=== PATIENT | female | born 1990 | race Caucasian/White ===

== ENCOUNTER 2018-09-19 13:40 | Emergency (ER) | payer BC ==
[~2018-09-19] VITALS: Ht 167.6 cm; Wt 48.1 kg
--- NOTE | 2018-09-19 13:50 | NUR ---
PT A/OX4, PRESENTS TO THE ER C/O PERSISTENT ABD PAIN W/ VAGINAL BLEEDING. PT REPORTS SHE IS S/P 08/31/18. PT STATES VAGINAL BLEEDING IS "HEAVY" AND SHE'S CURRENTLY CHANGING HER TAMPON Q2H. ABD PAIN IS NON-PROVOKED, CRAMPING IN QUALITY, RADIATES DOWN INTO THE LOWER ABD, 7/10, CONSTANT. VS WNL. PT REPORTS HIGH HCG LEVEL - APPROXIMATELY 6000 POST PROCEDURE ON 09/13/18. PT DENIES C/P, SOB, N/V/D, DIZZINESS, HEADACHE.
--- NOTE | 2018-09-19 13:55 | NUR ---
AMINA RUTLEDGE AT BEDSIDE FOR MSE.
[2018-09-19] MEDS ORDERED: FLUO20CA36 PO (14:01)
[2018-09-19] MEDS ORDERED: CLON1TAB12 PO (14:01)
[2018-09-19] MEDS ORDERED: MELA3TAB PO (14:01)
[2018-09-19 14:25] LABS: BASOPHILS # (AUTO) 0.1 K/uL (0.0-8.0); BASOPHILS % (AUTO) 0.7 % (0.0-2.0); EOSINOPHILS # (AUTO) 0.1 K/uL (0.0-0.7); EOSINOPHILS % (AUTO) 1.3 % (0.0-7.0); HEMATOCRIT 33.9 % (31.2-41.9); HEMOGLOBIN 11.4 g/dL (10.9-14.3); LYMPHOCYTES # (AUTO) 1.8 K/uL (20.0-40.0); LYMPHOCYTES % (AUTO) 23.2 % (20.5-51.5); MEAN CORPUSCULAR HGB CONC 34 g/dL (32.3-35.6); MEAN CORPUSCULAR VOLUME 95.1 fL (75.5-95.3); MONOCYTES # (AUTO) 0.4 K/uL (2.0-10.0); MONOCYTES % (AUTO) 4.7 % (0.0-11.0); NEUTROPHILS # (AUTO) 5.5 K/uL (1.8-8.9); NEUTROPHILS % (AUTO) 70.1 % (38.5-71.5); PLATELET COUNT (AUTO) 229 K/uL (179-408); RED BLOOD CELL COUNT(AUTO) 3.56 MIL/uL (3.63-4.92); WHITE BLOOD COUNT (AUTO) 7.9 K/uL (3.8-11.8)
[2018-09-19 14:27] LABS: *BILIRUBIN,URIN NEGATIVE (NEGATIVE); *BLOOD, URINE 2+ (NEGATIVE); *CLARITY,URINE CLEAR (CLEAR); *COLOR,URINE YELLOW (YELLOW); *KETONES,URINE NEGATIVE (NEGATIVE); *UROBILINOGEN,URINE 0.2 E.U./dl (NORMAL); LEUKOCYTE ESTERASE ,URINE NEGATIVE (NEGATIVE); NITRITE, URINE NEGATIVE (NEGATIVE); PH,URINE 6.5 (5.0-8.0); UGLUCOSE NEGATIVE (NEGATIVE)
[2018-09-19 14:34] LABS: CREATININE 0.8 mg/dL (0.6-1.3); POTASSIUM 3.9 mmol/L (3.5-5.1)
[2018-09-19 14:39] LABS: BACTERIA,URINE FEW /HPF (NONE SEEN); SQUAMOUS EPITHELIAL CELL,UR FEW /HPF (NONE SEEN); WBC,URINE 0-3 /HPF (0-3)
[2018-09-19 14:46] LABS: BILIRUBIN,DIRECT 0.3 mg/dL (0.0-0.2); BILIRUBIN,TOTAL 1.6 mg/dL (0.2-1.0); TOTAL PROTEIN, SERUM 6.5 g/dL (6.4-8.2)
--- NOTE | 2018-09-19 15:56 | NUR ---
AMINA RUTLEDGE AT BEDSIDE FOR PT UPDATE.
--- NOTE | 2018-09-19 16:08 | NUR ---
AMINA RUTLEDGE SPEAKING W/ DR. 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
--- NOTE | 2018-09-19 16:37 | NUR ---
Patient discharged to home in stable conditon. Written and verbal after care instructions given. Patient verbalizes understanding of instructions. ALL BELONGINGS W/ PT. PT SELF-AMBULATED W/O DIFFICULTY.
[2018-09-19 16:38] VITALS: BP 116/72
== END 2018-09-19 16:38 | disposition home or self-care (01) ==
LOC: ER 13:40
DX: O03.4 Incomplete spontaneous abortion without complication (principal); Z79.899 Other long term (current) drug therapy
CPT/HCPCS: 36415; 76856; 85025; 86850; 86900; 86901; A4663

== ENCOUNTER 2018-09-29 16:07 | Emergency (ER) | payer BC ==
[~2018-09-29] VITALS: Ht 167.6 cm; Wt 49.9 kg
[~2018-09-29 16:07] MED LIST: CLON1TAB12 PO; FLUO20CA36 PO; MELA3TAB PO
--- NOTE | 2018-09-29 16:10 | NUR ---
PT A/OX4, PRESENTS TO THE ER C/O VAGINAL BLEEDING. PT WAS SEEN IN THIS ER RECENTLY AND DX W/ INCOMPLETE AND INSTRUCTED TO FOLLOWUP W/ AN OBGYN. PT REPORTS SHE DID NOT MAKE AN APPT W/ AN OBGYN AND "RECENTLY STARTED BLEEDING AGAIN". VSS. PT DENIES PAIN, C/P, SOB, N/V/D, DIZZINESS, HEADACHE.
--- NOTE | 2018-09-29 16:18 | NUR ---
AMINA RUTLEDGE AT BEDSIDE FOR MSE.
--- NOTE | 2018-09-29 16:22 | NUR ---
US TECH AT BEDSIDE.
[2018-09-29] MEDS ORDERED: KETOROLAC TROMETHAMINE 15 MG INJ ONE (16:27)
[2018-09-29] MEDS ORDERED: IV NORMAL SALINE 1000 ML BAG IV ONE ×2 (16:30→20:30)
[2018-09-29] MEDS ORDERED: KETOROLAC TROMETHAMINE 15 MG INJ IV ONE (16:30)
[2018-09-29 16:54] LABS: BASOPHILS % (AUTO) 0.6 % (0.0-2.0); EOSINOPHILS % (AUTO) 0.4 % (0.0-7.0); HEMATOCRIT 39.4 % (31.2-41.9); HEMOGLOBIN 13.2 g/dL (10.9-14.3); LYMPHOCYTES # (AUTO) 1.7 K/uL (20.0-40.0); LYMPHOCYTES % (AUTO) 21.6 % (20.5-51.5); MEAN CORPUSCULAR HEMOGLOBIN 31.6 uug (24.7-32.8); MEAN CORPUSCULAR HGB CONC 33 g/dL (32.3-35.6); MEAN CORPUSCULAR VOLUME 94.7 fL (75.5-95.3); MONOCYTES # (AUTO) 0.3 K/uL (2.0-10.0); MONOCYTES % (AUTO) 4.1 % (0.0-11.0); NEUTROPHILS # (AUTO) 5.8 K/uL (1.8-8.9); NEUTROPHILS % (AUTO) 73.3 % (38.5-71.5); PLATELET COUNT (AUTO) 252 K/uL (179-408); RED BLOOD CELL COUNT(AUTO) 4.16 MIL/uL (3.63-4.92); WHITE BLOOD COUNT (AUTO) 7.9 K/uL (3.8-11.8)
[2018-09-29 17:02] LABS: CREATININE 0.6 mg/dL (0.6-1.3); POTASSIUM 3.1 mmol/L (3.5-5.1)
[2018-09-29 17:08] LABS: BILIRUBIN,DIRECT 0.4 mg/dL (0.0-0.2); BILIRUBIN,TOTAL 1.9 mg/dL (0.2-1.0); TOTAL PROTEIN, SERUM 7.9 g/dL (6.4-8.2)
[2018-09-29 17:08] LABS: *BILIRUBIN,URIN NEGATIVE (NEGATIVE); *BLOOD, URINE 3+ (NEGATIVE); *CLARITY,URINE CLOUDY (CLEAR); *KETONES,URINE 1+ (NEGATIVE); *UROBILINOGEN,URINE 0.2 E.U./dl (NORMAL); LEUKOCYTE ESTERASE ,URINE NEGATIVE (NEGATIVE); NITRITE, URINE NEGATIVE (NEGATIVE); PH,URINE 8.5 (5.0-8.0); UGLUCOSE NEGATIVE (NEGATIVE)
[2018-09-29 17:17] LABS: *COLOR,URINE Brown (YELLOW)
[2018-09-29 17:29] LABS: BACTERIA,URINE FEW /HPF (NONE SEEN); RBC,URINE TNTC /HPF (0-3); SQUAMOUS EPITHELIAL CELL,UR MANY /HPF (NONE SEEN)
[2018-09-29 17:30] LABS: MUCUS,URINE MODERATE /LPF (0-FEW)
--- NOTE | 2018-09-29 18:00 | NUR ---
LEFT A MESSAGE FOR [facility].
--- NOTE | 2018-09-29 18:05 | NUR ---
AMINA RUTLEDGE SPEAKING W/ [facility].
--- NOTE | 2018-09-29 18:08 | NUR ---
AMINA RUTLEDGE AT BEDSIDE FOR PT UPDATE.
--- NOTE | 2018-09-29 18:11 | NUR ---
AMINA RUTLEDGE SPEAKING W/ DR. KHAN ON THE PHONE.
[2018-09-29] MEDS ORDERED: METHYLERGONOVINE MALEATE 0.2 MG/ML AMP IM ONE (18:15)
[2018-09-29] MEDS ORDERED: OXYTOCIN 10 UNIT/ML VIAL IV ONE (18:15)
[2018-09-29] MEDS ORDERED: OXYTOCIN 10 UNIT/ML VIAL ONE (18:17)
[2018-09-29] MEDS ORDERED: METHYLERGONOVINE MALEATE 0.2 MG/ML AMP ONE (18:17)
--- NOTE | 2018-09-29 19:00 | NUR ---
SHIFT REPORT GIVEN TO JASMIN Ontiveros RN.
--- NOTE | 2018-09-29 20:17 | NUR ---
Patient c/o feeling hot, feverlike. Oral temperature checked at 99.0F. ERMD notfied.
[2018-09-29] MEDS ORDERED: METOCLOPRAMIDE HCL 10 MG/2 ML VIAL ONE (20:29)
[2018-09-29] MEDS ORDERED: ACETAMINOPHEN ES 500 MG TABLET ONE (20:29)
[2018-09-29] MEDS ORDERED: METOCLOPRAMIDE HCL 10 MG/2 ML VIAL IV ONE (20:30)
[2018-09-29] MEDS ORDERED: ACETAMINOPHEN ES 500 MG TABLET PO ONE (20:30)
[2018-09-29] MEDS ORDERED: diphenhydrAMINE 50 MG/1 ML VIAL IV ONE (20:45)
[2018-09-29] MEDS ORDERED: diphenhydrAMINE 50 MG/1 ML VIAL ONE (20:47)
--- NOTE | 2018-09-29 21:00 | NUR ---
Patient experienced adverse reaction, per ERMD to Reglan. Tardive dyskinesia like symptoms displayed. ERMD aware, and will order medication.
[2018-09-29 21:02] LABS: BASOPHILS # (AUTO) 0.1 K/uL (0.0-8.0); BASOPHILS % (AUTO) 0.6 % (0.0-2.0); EOSINOPHILS % (AUTO) 0.5 % (0.0-7.0); HEMATOCRIT 36.9 % (31.2-41.9); HEMOGLOBIN 12.4 g/dL (10.9-14.3); LYMPHOCYTES # (AUTO) 2.2 K/uL (20.0-40.0); LYMPHOCYTES % (AUTO) 24.1 % (20.5-51.5); MEAN CORPUSCULAR HEMOGLOBIN 31.8 uug (24.7-32.8); MEAN CORPUSCULAR HGB CONC 34 g/dL (32.3-35.6); MEAN CORPUSCULAR VOLUME 94.8 fL (75.5-95.3); MONOCYTES # (AUTO) 0.5 K/uL (2.0-10.0); MONOCYTES % (AUTO) 5.3 % (0.0-11.0); NEUTROPHILS # (AUTO) 6.2 K/uL (1.8-8.9); NEUTROPHILS % (AUTO) 69.5 % (38.5-71.5); PLATELET COUNT (AUTO) 226 K/uL (179-408); WHITE BLOOD COUNT (AUTO) 8.9 K/uL (3.8-11.8)
[2018-09-29 21:12] LABS: CREATININE 0.7 mg/dL (0.6-1.3); POTASSIUM 3.7 mmol/L (3.5-5.1)
[2018-09-29] MEDS ORDERED: ONDANSETRON IV *ER 4 MG/2 ML VIAL IV ONE (21:30)
[2018-09-29] MEDS ORDERED: ONDANSETRON 4 MG/2 ML VIAL ONE (21:33)
--- NOTE | 2018-09-29 21:46 | NUR ---
Patient refused RADHA escobar notified.
--- NOTE | 2018-09-29 22:27 | NUR ---
Patient discharged to home in stable conditon. Written and verbal after care instructions given. Patient verbalizes understanding of instructions. Patient ambulated with stable gait. Patient aware that she needs to come back in liz AM for evaluation, patient aware she needs to be NPO after midnight.
[2018-09-29 22:30] VITALS: BP 120/80
[2018-09-30] MEDS ORDERED: ZOLP10TA2 PO (09:28)
[2018-09-30] MEDS ORDERED: CLON1TAB PO (09:29)
== END 2018-09-29 22:31 | disposition home or self-care (01) ==
LOC: ER 16:08
DX: O03.4 Incomplete spontaneous abortion without complication (principal); Z88.8 Allergy status to other drugs, medicaments and biological substances; Z79.899 Other long term (current) drug therapy
CPT/HCPCS: 36415; 76856; 80048 ×2; 80076; 81001; 83605; 84702; 85025 ×2; 87040 ×2; 96372; 96374; 96375; 99284; J1200; J1885; J2210; J2590; J2765; A4663; A9150; J2405; J7030

== ENCOUNTER 2018-09-30 09:15 | Emergency (ER) | payer BC ==
[~2018-09-30] VITALS: Ht 167.6 cm; Wt 48.5 kg
[2018-09-30] MEDS ORDERED: ZOLP10TA2 PO (09:28)
[2018-09-30] MEDS ORDERED: CLON1TAB PO (09:29)
--- NOTE | 2018-09-30 09:30 | NUR ---
AMINA RUTLEDGE AT BEDSIDE FOR MSE.
[2018-09-30 09:51] LABS: BASOPHILS % (AUTO) 0.8 % (0.0-2.0); EOSINOPHILS # (AUTO) 0.1 K/uL (0.0-0.7); EOSINOPHILS % (AUTO) 1.4 % (0.0-7.0); HEMATOCRIT 33.6 % (31.2-41.9); HEMOGLOBIN 11.6 g/dL (10.9-14.3); LYMPHOCYTES # (AUTO) 1.1 K/uL (20.0-40.0); MEAN CORPUSCULAR HEMOGLOBIN 32.5 uug (24.7-32.8); MEAN CORPUSCULAR HGB CONC 34 g/dL (32.3-35.6); MEAN CORPUSCULAR VOLUME 94.4 fL (75.5-95.3); MONOCYTES # (AUTO) 0.3 K/uL (2.0-10.0); MONOCYTES % (AUTO) 6.6 % (0.0-11.0); NEUTROPHILS # (AUTO) 2.7 K/uL (1.8-8.9); NEUTROPHILS % (AUTO) 64.2 % (38.5-71.5); PLATELET COUNT (AUTO) 192 K/uL (179-408); RED BLOOD CELL COUNT(AUTO) 3.56 MIL/uL (3.63-4.92); WHITE BLOOD COUNT (AUTO) 4.2 K/uL (3.8-11.8)
[2018-09-30 10:01] LABS: *BILIRUBIN,URIN NEGATIVE (NEGATIVE); *CLARITY,URINE CLEAR (CLEAR); *COLOR,URINE YELLOW (YELLOW); *KETONES,URINE TRACE (NEGATIVE); *UROBILINOGEN,URINE 0.2 E.U./dl (NORMAL); LEUKOCYTE ESTERASE ,URINE NEGATIVE (NEGATIVE); NITRITE, URINE NEGATIVE (NEGATIVE); UGLUCOSE NEGATIVE (NEGATIVE)
[2018-09-30 10:03] LABS: *BLOOD, URINE TRACE (NEGATIVE)
[2018-09-30 10:09] LABS: BACTERIA,URINE FEW /HPF (NONE SEEN); RBC,URINE 0-3 /HPF (0-3); SQUAMOUS EPITHELIAL CELL,UR FEW /HPF (NONE SEEN); WBC,URINE 0-3 /HPF (0-3)
--- NOTE | 2018-09-30 10:21 | NUR ---
AMINA RUTLEDGE SPEAKING W/ DR. MARTINES OBGALINA, RE PT'S CARE.
--- NOTE | 2018-09-30 11:37 | NUR ---
US TECH AT BEDSIDE.
--- NOTE | 2018-09-30 12:56 | NUR ---
Patient discharged to home in stable conditon. Written and verbal after care instructions given. Patient verbalizes understanding of instructions. ALL BELONGINGS W/ PT. PT SELF-AMBULATED W/O DIFFICULTY. REFERRAL TO [facility], PROVIDED. 20G IV ACCESS IN LAC REMOVED PRIOR TO D/C - INNER CANNULA INTACT.
[2018-09-30 12:57] VITALS: BP 122/70
== END 2018-09-30 12:58 | disposition home or self-care (01) ==
LOC: ER 09:15
DX: O03.9 Complete or unspecified spontaneous abortion without complication (principal); Z88.8 Allergy status to other drugs, medicaments and biological substances; Z79.899 Other long term (current) drug therapy
CPT/HCPCS: 36415; 76856; 83605; 85025; 85610; 87086; A4663